=== PATIENT | male | born 1935 | race Caucasian/White ===

== ENCOUNTER 2019-06-15 09:15 | Emergency (ER) | payer MEDICARE, BC, SELFPAY ==
[2019-06-15 09:28] VITALS: BP 142/71; PULSE 61; RESP 16; TEMP 36.5; O2SAT 98
--- NOTE | 2019-06-15 09:41 | ED.EAR ---
HPI - Ear Problem General Chief complaint: Ear Stated complaint: Ears Stopped Up Time Seen by Provider: 06/15/19 09:38 Source: patient and RN notes reviewed Mode of arrival: ambulatory Limitations: no limitations History of Present Illness HPI Narrative: Patient presents today complaining of bilateral ear clogging since yesterday. Denies pain or drainage. He did use some peroxide in his ears with wax resulting. Denies any recent illness. He does report some decreased hearing bilaterally. MD Complaint: other (Ear clogging) Related Data Home Medications Medication Instructions Recorded Confirmed metoprolol succinate [Toprol XL] 50 mg PO BID 06/15/19 06/15/19 pantoprazole [Protonix] 40 mg PO DAILY 06/15/19 06/15/19 rosuvastatin 10 mg PO DAILY 06/15/19 06/15/19 Allergies Allergy/AdvReac Type Severity Reaction Status Date / Time iodine Allergy Unknown Agitated Verified 06/15/19 09:35 Review of Systems Review of Systems: Narrative: CONSTITUTIONAL: Denies body aches, fever, chills, or sweats. EYES: Denies visual changes, redness, or discharge. ENT: Denies rhinorrhea, congestion, sore throat, or otalgia.+ Bilateral ear clogging CARDIOVASCULAR: Denies chest pain, palpitations, or edema. RESPIRATORY: Denies cough or dyspnea. GASTROINTESTINAL: Denies abdominal pain, nausea, vomiting, or diarrhea. GENITOURINARY: Denies dysuria or hematuria. SKIN: Denies rash, itching, or wounds. MUSCULOSKELETAL: Denies back pain, joint pain, or myalgia. NEUROLOGIC: Denies headache, numbness, tingling, or weakness. PSYCH: Denies depression or anxiety. [facility] Social History Social History (Reviewed 03/22/19 @ 11:28 by Nataliia Amaya [facility]) Smoking status: Never smoker Alcohol intake: never Gender identity (if verbalized by the patient): Male Comments At time of signature, I have reviewed and agree with nursing past medical, surgical, social and family history unless otherwise noted. Please see nursing chart for further information. There is no relevant family history pertinent to the presenting complaint Exam Narrative: Exam Narrative: GENERAL: Well-appearing, well-nourished, and in no acute distress. HEAD: Normocephalic, atraumatic. EYES: EOMI. No redness or drainage. Conjunctivae normal. ENT: Mucous membranes pink and moist. Nares clear. No rhinorrhea. Bilateral ear canals are erythematous with excoriated skin in the canals and extra loose skin from debridement in the ear canals. NECK: Normal AROM. Supple. No lymphadenopathy. CHEST: No respiratory distress. EXTREMITIES: Normal range of motion. No edema. SKIN: Warm, dry, no rash. NEURO: No focal deficits. Alert and oriented x3. Gait steady. PSYCH: Normal affect. No signs of depression or anxiety. Course Vital Signs Vital signs: Vital Signs Temperature 97.7 F 06/15/19 09:28 Pulse Rate 61 06/15/19 09:28 Respiratory Rate 16 06/15/19 09:28 Blood Pressure 142/71 H 06/15/19 09:28 Pulse Oximetry 98 06/15/19 09:28 Temperature 97.7 F 06/15/19 09:28 Pulse Rate 61 06/15/19 09:28 Respiratory Rate 16 06/15/19 09:28 Blood Pressure 142/71 H 06/15/19 09:28 Pulse Oximetry 98 06/15/19 09:28 Reviewed. Pt has been instructed to follow up with his PCP regarding his elevated blood pressure today. Procedures Ear Wax Removal Both Ears: Ear Wax Removal Date: 06/15/19 Ear Wax Removal Time: 09:50 Cerumenolytic Used: other (Water and elephant ear) TM Examination: TM(s) intact, normal appearance Ear Canal Exam: atraumatic Patient Tolerated Procedure: well Complications: no problems Additional Comments: Canal is erythematous and excoriated without edema. Skin has been removed. Medical Decision Making Differential Diagnosis Differential Diagnosis: Otitis media, otitis externa, ruptured TM, serous otitis, eustachian tube dysfunction, cerumen impaction Vital Signs Vital Signs: Vital Signs Tempera
== END 2019-06-15 09:55 | disposition home or self-care (01) ==
PROVIDERS: Emergency Provider Nurse Practitioner; PCP Internal Medicine
DX: H60.503 Unspecified acute noninfective otitis externa, bilateral (principal); E78.00 Pure hypercholesterolemia, unspecified; I10 Essential (primary) hypertension
CPT/HCPCS: 99213; G0463

== ENCOUNTER → 2019-10-18 14:43 | Outpatient (REF) | payer MEDICARE, BC, SELFPAY | LOC: ANHLAB 14:43 | PROVIDERS: PCP Internal Medicine; Visit Provider Nurse Practitioner Family | DX: D09.8 Carcinoma in situ of other specified sites (principal) | CPT/HCPCS: 88305 ==

== ENCOUNTER → 2019-11-15 09:35 | Outpatient (REF) | payer MEDICARE, BC, SELFPAY | LOC: ANHLAB 09:35 | PROVIDERS: PCP Internal Medicine; Visit Provider Nurse Practitioner Family | DX: C44.329 Squamous cell carcinoma of skin of other parts of face (principal) | CPT/HCPCS: 88305; 88331 ==

== ENCOUNTER 2022-02-16 01:11 | Day surgery (SDC) | payer MEDICARE, BC, SELFPAY ==
[2022-02-13 13:25] VITALS: BMI 24.5
[2022-02-16 09:01] LABS: Basophils Absolute Auto 0.1 K/mm3 (0.0-0.1); Basophils Percent Auto 0.7 % (0.2-1.2); Eosinophils Absolute Auto 0.2 K/mm3 (0-0.3); Eosinophils Percent Auto 2.6 % (0-4.4); Hematocrit 38.5 % (42.0-52.0); Immature Granulocyte Absolute 0.03 K/mm3 (0.00-0.031); Immature Granulocyte Percent A 0.4 % (0-0.5); Lymphocytes Percent Auto 24.7 % (18.3-44.2); Mean Corpuscular HGB Conc 33.8 g/dl (32-36); Mean Corpuscular Hemoglobin 34.3 pg (26-34); Mean Corpuscular Volume 101.6 fl (80-100); Mean Platelet Volume 9.8 fl (7.4-10.4); Monocytes Absolute Auto 0.7 K/mm3 (0.1-0.6); Monocytes Percent Auto 9.6 % (2.6-8.5); Neutrophils Absolute Auto 4.5 K/mm3 (1.3-6.7); Platelet Count Result 184 k/mm3 (150-375); Red Blood Count 3.79 M/mm3 (4.6-6.20); Red Cell Distribution Width 14.5 % (11.5-14.5); White Blood Count 7.3 K/mm3 (4.5-10.0)
[2022-02-16 09:11] LABS: Anion Gap 6 mmol/L (8-16); Blood Urea Nitrogen 15 mg/dL (9-20); Calcium 9.3 mg/dL (8.4-10.2); Carbon Dioxide 28 mmol/L (22-30); Chloride 104 mmol/L (98-107); Estimated CRCL calculation 49 ml/min; Estimated Glomerular Filt Rate > 60; Glucose 104 mg/dL (65-110); Potassium 4.7 mmol/L (3.4-5.0); Sodium 138 mmol/L (137-145)
[2022-02-16 09:20] VITALS: BP 117/63; PULSE 54; RESP 14; TEMP 36.7; O2SAT 100; BMI 25.2
--- NOTE | 2022-02-16 09:31 | WPDMODSED ---
Moderate Sedation Note-Pt Data Patient Data Diagnosis: Complete heart block with chronically implanted dual-chamber pacemaker Present Complaint: No complaints Procedure to be performed/Plan: Pacemaker generator change Allergies Allergy/AdvReac Type Severity Reaction Status Date / Time No Known Allergies Allergy Verified 02/16/22 09:18 Home Medications Medication Instructions Recorded Confirmed Type metoprolol succinate 50 mg 50 mg PO BID 06/15/19 02/13/22 History tablet,extended release 24 hr (Toprol XL) aspirin 81 mg tablet,delayed 81 mg PO DAILY 09/27/19 02/13/22 History release latanoprost 0.005 % eye drops 1 drp EACH EYE BID 03/07/21 02/13/22 History timolol maleate 0.5 % eye drops 1 drp RIGHT EYE DAILY 03/07/21 02/13/22 History pantoprazole 40 mg tablet,delayed See Rx Instructions .Route 07/31/21 02/13/22 Rx release .COMPLEX #90 tabs allopurinol 300 mg tablet See Rx Instructions .Route 11/28/21 02/13/22 Rx .COMPLEX #90 tabs rosuvastatin 10 mg tablet 10 mg PO DAILY #90 tabs 12/19/21 02/13/22 Rx lisinopril 40 mg tablet 40 mg PO DAILY #90 tabs 02/13/22 02/13/22 Rx Sedation/Anesthesia: No previous sedation/anesthesia problems (including family history). [facility] Past Medical History Medical History (Updated 05/29/21 @ 09:29 by Pete Mendenhall*MD) Cardiac pacemaker in situ History of carotid artery disease History of prostate cancer Surgical History Surgical History (Updated 09/11/21 @ 12:55 by Kvng Murillo APRN) History of carotid endarterectomy Family History Family History Father Acute myocardial infarction Sibling Acute myocardial infarction Social History Social History (Updated 09/11/21 @ 12:56 by Kvng Murillo APRN) Smoking status: Never smoker Second hand tobacco smoke exposure: Yes Alcohol intake: former Alcohol use details: used to drink a couple beers every day- quit drinking 3 years ago Substance use: never Substance use type: does not use Living arrangements: alone Gender identity (if verbalized by the patient): Male Spiritual care concerns: No Mod Sed Physical Exam Physical Exam Pre Procedural Exam: Normal: Appearance, Neck, Throat, Airway, Lungs, Heart Size, Heart Rate, Heart Rhythm, Neuro Exam and Extremities Hours since solid foods: 12 Hours since liquid intake: 12 Mallampati Classification: class II Internal Medicine - PN: Obj Da Vital Signs Vital Signs: Vital Signs - 24 hr 02/16/22 09:20 Temperature 36.7 C Pulse Rate 54 L Respiratory Rate 14 Blood Pressure 117/63 Pulse Oximetry 100 Oxygen Delivery Room Air Labs CBC & Chem 7: 02/16/22 08:49 02/16/22 08:49 Labs: Laboratory Results - last 24 hr 02/16/22 02/16/22 02/16/22 08:49 08:49 08:49 WBC 7.3 RBC 3.79 L Hgb 13.0 L Hct 38.5 L MCV 101.6 H MCH 34.3 H MCHC 33.8 RDW 14.5 Plt Count 184 MPV 9.8 Immature Gran % (Auto) 0.4 Neut % (Auto) 62.0 Lymph % (Auto) 24.7 [place] % (Auto) 9.6 H Eos % (Auto) 2.6 Baso % (Auto) 0.7 Lymph # (Auto) 1.80 [place] # (Auto) 0.7 H Eos # (Auto) 0.2 Baso # (Auto) 0.1 Abs Immat Gran (auto) 0.03 Absolute Neuts (auto) 4.5 Absolute Nucleated RBC 0.0 Nucleated RBC % 0.0 PT 13.0 INR 1.0 Sodium 138 Potassium 4.7 Chloride 104 Carbon Dioxide 28 Anion Gap 6 L BUN 15 Creatinine 1.10 Estim Creat Clear Calc 49 Estimated GFR > 60 Glucose 104 Calcium 9.3 ASA Classification/Sedation ASA Classification/Sedation ASA Class: II Emergent: No Risks: Risks, benefits and alternatives explained and patient/family accepted plan for sedation. Patient re-evaluated immediately prior to sedation.
--- NOTE | 2022-02-16 10:55 | WPDCARDPROC ---
Cardiac Cath Procedure Note Date of procedure:: 02/16/22 Performing physician:: Adan Caro MD Indication:: permanent dual-chamber pacemaker at [facility] Brief clinical history:: this is an 86-year-old man with a history of intermittent complete heart block with a permanently implanted dual-chamber pacemaker which is functioning normally but is at end of service. He is admitted as an outpatient for elective generator change Procedure Procedure performed:: explant of depleted pulse generator implant new permanent dual-chamber pulse generator Sedation/Medication given:: fentanyl 25 mg Versed 2 mg case start time 10:20 a.m. case end time 10:28 a.m. sedation provided by Debi Dowd RN, trained observer Access site:: chronic left subclavian pocket Estimated blood loss:: minimal Procedure note:: patient was brought to the cardiac catheterization lab in the postabsorptive state where the left anterior chest wall was prepped and draped in the usual fashion. A the chronically implanted pocket was easily visible. Patient received 1% lidocaine infiltrated locally above the pocket and then using the PlasmaBlade an incision was made above the pocket and used to dissect the subcutaneous tissue down to the level of the fibrous capsule. This was then opened with the PlasmaBlade as well as the Metzenbaum scissors. The chronically implanted device in the attached leads were removed from the pocket and found to be visually intact and unremarkable in appearance. The leads were disconnected from the depleted generator using the torque wrench. The pocket was extended slightly inferiorly to create room for the new implant. The pocket was then irrigated with Ancef infused saline. The leads were then connected to the new generator using the torque wrench and the entire assembly was placed back into the pocket. This was then closed in layers using 3-0 Vicryl in interrupted fashion with the subcutaneous tissue and 4-0 Vicryl in a running subcuticular fashion for the skin. The wound was dressed with an Aquacel dressing he was taken to the holding area for post procedure recovery. There were no procedural complications. Findings:: The depleted pulse generator is a [employer] [id number] implanted initially March 10, 2013 new pulse generator is a [employer] ([employer]) MRI 2272 dual-chamber pulse generator programmed in the DDDR mode with lower rate limit 60 upper rate limit 110 av delay 250/225 milliseconds. The chronic atrial lead is a [employer] OptiSense bipolar lead serial number [id number]. the P-waves are sensed at 2.7 mV threshold 0.375 volts at 0.5 milliseconds impedance 350 Ohms. Chronic ventricular lead is a [employer]aurus Tendril STS 2088TC/58. serial number [id number]. R-waves are sensed at 9.9 mV threshold 0.1 volts at 0.5 milliseconds impedance 430 Ohms. Conclusion:: 1. Successful uncomplicated explantation of depleted dual-chamber pulse generator 2. successful uncomplicated implantation of new dual-chamber pulse generator for ongoing treatment of bradycardia and intermittent complete heart block in this 86-year-old man. Adan Caro MD [facility]
[2022-02-16 11:06] VITALS: BP 136/62; PULSE 59; RESP 18; O2SAT 100
[2022-02-16 11:15] VITALS: BP 135/66; PULSE 60; RESP 14; O2SAT 100
[2022-02-16 11:30] VITALS: BP 146/66; PULSE 60; RESP 13; O2SAT 100
[2022-02-16 12:00] VITALS: BP 155/69; PULSE 60; RESP 12; O2SAT 100
[2022-02-16 12:15] VITALS: BP 144/65; PULSE 60; RESP 16; O2SAT 100
== END 2022-02-16 12:38 | disposition home or self-care (01) ==
PROVIDERS: PCP Internal Medicine; Visit Provider Specialist
PROC: 0JPT0PZ Removal of Cardiac Rhythm Related Device from Trunk Subcutaneous Tissue and Fascia, Open Approach (ICD-10-PCS; CPT 33228; principal; 2022-02-16 10:00)
DX: Z45.010 Encounter for checking and testing of cardiac pacemaker pulse generator [battery] (principal); Z79.82 Long term (current) use of aspirin; Z85.46 Personal history of malignant neoplasm of prostate
CPT/HCPCS: 33228; 36415; 80048; 85025; 85610; C1785; J0690; J2250; J3010; J7040

== ENCOUNTER 2023-06-13 09:37 | Inpatient (IN) | payer MEDICARE, BC, SELFPAY ==
[2023-06-13] VITALS (13 sets, daily range): BP systolic 126–143; BP diastolic 56–72; PULSE 60–65; RESP 12–20; TEMP 36.2–36.6; O2SAT 94–100; BMI 25.8
--- NOTE | ~2023-06-13 | XR_ITS ---
XR chest 2V 06/13/2023 11:14 Indication: Weakness after fall Procedure: AP and lateral views the chest Comparison: Comparison to multiple prior studies sequentially, with oldest reviewed study dated 10/15. Findings: Heart size normal. Pacemaker leads are in expected position. There is evidence for chronic granulomatous disease. No focal air space disease, pulmonary edema, pleural effusion or suspected pne umothorax. Impression: 1: No acute cardiopulmonary disease. Reviewed, dictated and finalized at location A. SHED YARN EXAMINER Impression: 1: No acute cardiopulmonary disease.
--- NOTE | ~2023-06-13 | CT_ITS ---
EXAMINATION: CT brain wo con DATE: 06/13/2023 11:35 INDICATION: Weakness. Unsteady gait. TECHNIQUE: Computed tomography (CT) of the head was performed without intravenous contrast. The dose- length product was 681.00 mGy-cm. Automated exposure control and iterative reconstruction technique w ere employed. COMPARISON: None FINDINGS: Mild generalized atrophy. There are scattered mild periventricular and subcortical white ma tter changes, most likely related to small vessel ischemic disease (microangiopathy). No acute infarc tion, hemorrhage, mass or mass effect. No ventriculomegaly or midline shift. There is mucosal thicken ing of the paranasal sinuses. Mastoids are pneumatized. No depressed skull fractures. Midline sagitta l images are unremarkable. IMPRESSION: 1. No acute intracranial abnormality. Reviewed, dictated and finalized at location A. TRANSFER CLERK
--- NOTE | 2023-06-13 10:28 | ECG_ITS ---
Measurements Intervals [place] Rate: 61 P: 147 SC: 245 QRS: -87 QRSD: 192 T: 73 QT: 497 QTc: 502 Interpretive Statements ELECTRONIC ATRIAL PACEMAKER ELECTRONIC VENTRICULAR PACEMAKER NO FURTHER INTERPRETATION POSSIBLE NO PREVIOUS ECG AVAILABLE FOR COMPARISON Electronically Signed On 06-13-2023 18:25:54 CONTROL ROOM TENDER by Thanh Cedillo M.D.
[2023-06-13 10:41] LABS: Glucose Point of Care 176 mg/dl (65-105)
[2023-06-13 10:49] LABS: Basophils Percent Auto 0.6 % (0.2-1.2); Eosinophils Absolute Auto 0.1 K/mm3 (0-0.3); Hematocrit 36.4 % (42.0-52.0); Immature Granulocyte Absolute 0.02 K/mm3 (0.00-0.031); Immature Granulocyte Percent A 0.3 % (0-0.5); Lymphocytes Absolute Auto 1.15 K/mm3 (0.9-3.2); Lymphocytes Percent Auto 16.5 % (18.3-44.2); Mean Corpuscular Hemoglobin 32.8 pg (26-34); Mean Corpuscular Volume 99.5 fl (80-100); Mean Platelet Volume 9.5 fl (7.4-10.4); Monocytes Absolute Auto 0.7 K/mm3 (0.1-0.6); Monocytes Percent Auto 9.5 % (2.6-8.5); Neutrophils Percent Auto 72.1 % (45.5-73.1); Platelet Count Result 186 k/mm3 (150-375); Red Blood Count 3.66 M/mm3 (4.6-6.20); Red Cell Distribution Width 14.3 % (11.5-14.5)
[2023-06-13 11:04] LABS: Alanine Aminotransferase 22 U/L (6-50); Albumin Level 3.9 g/dL (3.5-5.1); Alkaline Phosphatase 66 U/L (38-126); Anion Gap 4 mmol/L (8-16); Aspartate Amino Transferase 30 U/L (17-59); Bilirubin,Total 0.5 mg/dL (0.2-1.3); Blood Urea Nitrogen 20 mg/dL (9-20); Calcium 9.7 mg/dL (8.4-10.2); Carbon Dioxide 29 mmol/L (22-30); Chloride 101 mmol/L (98-107); Estimated CRCL calculation 51 ml/min; Estimated Glomerular Filt Rate > 60; Glucose 130 mg/dL (65-110); Potassium 4.2 mmol/L (3.4-5.0); Sodium 134 mmol/L (137-145)
--- NOTE | 2023-06-13 11:10 | ED.FALL ---
HPI - Fall General Chief Complaint: Fall <Radha Tello PA-C - Last Filed: 06/13/23 18:00> Stated Complaint: fall <Radha Tello PA-C - Last Filed: 06/13/23 18:00> Time Seen by Provider: 06/13/23 10:30 <Radha Tello PA-C - Last Filed: 06/13/23 18:00> Source: patient and family <KAY Nathan Last Filed: 06/13/23 18:00> Mode of arrival: wheelchair <KAY Nathan Last Filed: 06/13/23 18:00> Limitations: other (poor historian) <KAY Nathan Last Filed: 06/13/23 18:00> History of Present Illness HPI Narrative: This is an 87-year-old male that presents to the emergency department for generalized weakness. Reports yesterday he was leaning forward to flower picker a blanket. Reports he lost his balance and fell on to his right shoulder. Reports he has felt off balance since. Has not been able to ambulate with a steady gait. He does live home alone. He is unsure if he hit his head. He did not lose consciousness. Denies any prodromal symptoms. No other concerns at this time. <Radha Tello PA-C - Last Filed: 06/13/23 18:00> Related Data Home Medications: Home Medications Medication Instructions Recorded Confirmed metoprolol succinate 50 mg 50 mg PO BID 06/15/19 03/31/23 tablet,extended release 24 hr (Toprol XL) aspirin 81 mg tablet,delayed 81 mg PO DAILY 09/27/19 03/31/23 release latanoprost 0.005 % eye drops 1 drp EACH EYE BID 03/07/21 03/31/23 timolol maleate 0.5 % eye drops 1 drp RIGHT EYE DAILY 03/07/21 03/31/23 <KAY Nathan Last Filed: 06/13/23 18:00> Allergies/Adverse Reactions: Allergies Allergy/AdvReac Type Severity Reaction Status Date / Time No Known Allergies Allergy Verified 03/31/23 13:27 <Radha Tello PA-C - Last Filed: 06/13/23 18:00> Review of Systems Review of Systems: CONSTITUTIONAL: Denies fever EYES: Denies visual changes CARDIOVASCULAR: Denies chest pain, palpitations, or edema. RESPIRATORY: Denies dyspnea. GASTROINTESTINAL: Denies abdominal pain, nausea, vomiting GENITOURINARY: Denies dysuria MUSCULOSKELETAL: Reports joint pain, and myalgia. NEUROLOGIC: Denies numbness, or weakness. <Radha Tello PA-C - Last Filed: 06/13/23 18:00> All systems reviewed & are unremarkable except as noted in HPI and below <Radha Tello PA-C - Last Filed: 06/13/23 18:00> [facility] Past Medical History Medical History: Medical History (Updated 06/13/23 @ 17:57 by Radha Tello PA-C) Actinic keratosis Benign hypertension with CKD (chronic kidney disease) stage III Cardiac pacemaker in situ CKD stage G3a/A1, GFR 45-59 and albumin creatinine ratio <30 mg/g Glaucoma Gout, unspecified History of carotid artery disease History of heart block History of prostate cancer Mixed hyperlipidemia 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 <Radha Tello PA-C - Last Filed: 06/13/23 18:00> Surgical History Surgical History: Surgical History History of carotid endarterectomy <Radha Tello PA-C - Last Filed: 06/13/23 18:00> Family History Family History: Family History Father Acute myocardial infarction Sibling Acute myocardial infarction <Radha Tello PA-C - Last Filed: 06/13/23 18:00> Social History Social History: Social History Smoking status: Never smoker Second hand tobacco smoke exposure: Yes Alcohol intake: former Alcohol use details: used to drink a couple beers every day- quit drinking 3 years ago Substance use: never Substance use type: does not use Lack of Transportation: No Lack of Food: Never True Current Housing: I Have Housing Concerned About Future Housing: No Difficulty Paying Gas/Elect
[2023-06-13 11:35] LABS: Influenza A QL RT-PCR Negative (Negative); Influenza B QL RT-PCR Negative (Negative); RSV RNA, RT-PCR Negative (Negative); SARS-CoV-2 RNA PCR Positive (Negative)
[2023-06-13 12:43] LABS: Appearance Urine Clear (Clear); Bilirubin Urine Negative (Negative); Blood Urine Negative (Negative); Color Urine Yellow (Yellow); Glucose Urine UA Negative (Negative); Ketones Urine Negative (Negative); Leukocyte Esterase Ur Negative LEU/UL (Negative); Nitrate Urine Negative (Negative); Protein Urine Negative (Negative); Specific Grav Ur 1.012 (1.001-1.035); Urobilinogen Urine 0.2 mg/dL (<2.0); pH Urine 7.5 (5.0-9.0)
[2023-06-13 12:49] LABS: Add Urine Microscopic? NO
[2023-06-13] MEDS: SODIUM CHLORIDE 0.9% IV 500 ML 999 ML IV CONT (13:32)
[2023-06-13] MEDS: MECLIZINE HCL 25 MG TABLET PO (13:33)
[2023-06-13] MEDS: ONDANSETRON INJ 4 MG/2 ML VIAL IV PUSH (13:33)
--- NOTE | 2023-06-13 17:40 | ADMGEN ---
This patient, Davon Mtz, was admitted to Virtual Bed 3rd Floor-1. Patient/family oriented to hospital policies and general routines including ID bracelet, bed and alarms, visiting hours, pain management, procedures, bathroom and other care routines, personal items, smoking policy, room service/diet, and visiting hours. Information on how to activate the Rapid Response Team has been discussed. Patient/Family are encouraged to report perceived risks to care and to ask questions if they do not understand what they are told or what they should do.
--- NOTE | 2023-06-13 18:46 | PM.IMHP ---
H&P: HPI History of Present Illness Date/Time: 06/13/23 20:15 Chief Complaint: Unsteady, fall yesterday. Narrative: This is a very pleasant 87-year-old male with hypertension, hyperlipidemia, permanent pacemaker implantation, bilateral carotid endarterectomy, prostate cancer, gout, anemia, and glaucoma presented to the emergency department for evaluation of unsteady gait and fall yesterday. The patient provides the following history. Yesterday he bent over to roller picker a blanket when he lost his balance and fell forward onto his right shoulder. He is able to move that shoulder without issue and has no pain but since that time he has felt increasingly weak and off balance. His gait has not been steady and he is afraid that he is going to fall again. He does not think he had any head trauma in the fall and denies prodrome will symptoms and loss of consciousness. Last week he had a cold but those symptoms have since resolved and he denies fever, chills, sweats, vertigo, visual changes, facial droop, difficulty speaking and swallowing, focal weakness, paresthesias, chest pain, pleuritic pain, cough, shortness of breath, nausea, vomiting, diarrhea, and dysuria. In the ED: He was afebrile on arrival with stable blood pressures. Labs were significant for WBC count of 7.0, hemoglobin 12.0, sodium 134, glucose 130. Urinalysis was unremarkable. He tested positive for SARS-CoV-[address] showed no acute abnormality and chest x-ray was also normal. Attempts at ambulation the emergency department were difficult due to unsteady gait and he is being admitted in this setting for further evaluation. Review of Systems Review of Systems: Twelve systems were reviewed and are negative except for as per HPI. [facility] Past Medical History Medical History Actinic keratosis Benign essential hypertension Carotid artery disease Status post bilateral carotid endarterectomy. 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 Code status: Do not resuscitate. Smoking status: Never smoker Second hand tobacco smoke exposure: Yes Alcohol intake: former Alcohol use details: used to drink a couple beers every day- quit drinking 3 years ago Substance use: never Substance use type: does not use Do You Feel Safe in your Home?: Yes Lack of Transportation: No Lack of Food: Never True Current Housing: I Have Housing Concerned About Future Housing: No Difficulty Paying Gas/Electric Bills: No Difficulty Paying for Meds: No Currently Unemployed: No Education: High School Diploma/GED Difficulty w/ Childcare or Family Care: No Living arrangements: alone Additional living arrangements comments: The patient lives in his own home in [place]. 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 Spiritual care concerns: No Meds Home Medications and Allergies Home Medications Medication Instructions Recorded Confirmed Type metoprolol succinate 50 mg 50 mg PO DAILY 06/15/19 06/13/23 History tablet,extended release 24 hr (Toprol XL) aspirin 81 mg tablet,delayed 81 mg PO VIPUL
[2023-06-14] VITALS (10 sets, daily range): BP systolic 95–119; BP diastolic 50–64; PULSE 57–75; RESP 18–20; TEMP 36–36.8; O2SAT 96–100
--- NOTE | 2023-06-14 | ECHO_ITS ---
Patient Info Name: Davon Mtz Age: 87 years : 1935 Gender: Male Ht: 72 in Wt: 177 lbs BSA: 2.02 m2 HR: 61 bpm BP: 119 / 55 mmHg Heart Rhythm: Sinus Rhythm Technical Quality: Fair Exam Date: 06/14/2023 3:33 PM Exam Location: Echo Lab Patient Status: Inpatient Admit Date: 06/14/2023 Staff Ordering Physician: Ami Cornelius APRN Spring Tacker: Carisa Whitmore RDCS Attending Provider: Brenton Molina MD Referring Physician: Ashli JIN; Exam Type: CA echo doppler color flow Study Info Indications - Weakness Complete two-dimensional, color flow and Doppler transthoracic echocardiogram is performed. Summary 1. Complete two-dimensional, color flow and Doppler transthoracic echocardiogram is performed. 2. Left ventricular hypertrophy with well-preserved systolic function and grade 1 diastolic noncompliance. 3. Enlarged left atrium. 4. Pacemaker lead identified. 5. Sclerotic aortic valve with minimal stenosis valve area 1.7 cm2. Left Ventricle Left ventricular chamber dimension is normal. Left ventricular systolic function is normal, estimated at 65-70%. There is moderate concentric increased left ventricular wall thickness. The left ventricular diastolic function is grade I diastolic dysfunction. Right Ventricle Right ventricular chamber dimension is normal. Linear artifact in right ventricle suggestive of catheter(s), pacemaker lead(s), or ICD lead(s). Left Atria Left atrial chamber dimension is moderately enlarged. Right Atria Right atrial chamber dimension is normal. Aortic Valve The aortic valve is trileaflet. There is moderate aortic valve sclerosis. There is mild aortic valve stenosis with a peak velocity of 183 cm/s, mean gradient of 8 mmHg, and aortic valve area of 1.9 cm2. Pulmonic Valve The pulmonic valve is not well visualized. Mitral Valve The mitral valve has normal leaflets. The mitral valve annulus is mildly calcified. Tricuspid Valve The tricuspid valve leaflets are normal. Pericardium/Pleural The pericardium appears normal. Aorta The aortic root size at the sinus of Valsalva is normal. Left Ventricular Outflow Tract Name Value Normal LVOT 2D LVOT Diameter 2.0 cm LVOT Doppler LVOT Peak Gradient 4 mmHg LVOT Mean Gradient 2 mmHg LVOT VTI 23 cm LVOT VTI/AV VTI Ratio 0.6 LVOT Stroke Volume 72 ml LVOT CO 4.2 l/min LVOT CI 2.1 l/min/m2 Mitral Valve Name Value Normal MV Doppler MV Decel [place] 250 cm/s2 MV PHT 84 ms MV Area (PHT) 2.6 cm2 4.0-5.0 MV Diastolic Function MV E Peak Velocity 72 cm/s MV
[2023-06-14 05:18] LABS: Hematocrit 36.9 % (42.0-52.0); Hemoglobin 12.3 g/dL (14.0-18.0); Mean Corpuscular HGB Conc 33.3 g/dl (32-36); Mean Corpuscular Hemoglobin 32.9 pg (26-34); Mean Corpuscular Volume 98.7 fl (80-100); Mean Platelet Volume 9.8 fl (7.4-10.4); Platelet Count Result 188 k/mm3 (150-375); Red Blood Count 3.74 M/mm3 (4.6-6.20); Red Cell Distribution Width 13.9 % (11.5-14.5); White Blood Count 7.7 K/mm3 (4.5-10.0)
[2023-06-14 05:35] LABS: Anion Gap 2 mmol/L (8-16); Blood Urea Nitrogen 15 mg/dL (9-20); Calcium 9.6 mg/dL (8.4-10.2); Carbon Dioxide 30 mmol/L (22-30); Chloride 104 mmol/L (98-107); Estimated CRCL calculation 57 ml/min; Estimated Glomerular Filt Rate > 60; Glucose 93 mg/dL (65-110); Magnesium 2.3 mg/dL (1.6-2.3); Potassium 4.2 mmol/L (3.4-5.0); Sodium 136 mmol/L (137-145)
--- NOTE | 2023-06-14 07:42 | P.PNIM_ITS ---
Progress Note: A&P Assessment and Plan (1) Fall from ground level: Code(s): W18.30XA - Fall on same level, unspecified, initial encounter Status: Acute Assessment and Plan: 06/14/2023: * patient here for evaluation after a ground level fall at home. He states that he has been a bit off balance for a while. 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 * Chest x-ray negative for any acute cardiopulmonary disease * head CT negative for any intracranial abnormality * PT and OT ordered for evaluation * orthostatic blood pressures Q shift * pacemaker interrogation ordered * patient started on meclizine 25 mg and 500 ml of normal saline while in the ED * will continue meclizine 25 mg daily (2) Gait instability: Code(s): R26.81 - Unsteadiness on feet Status: Acute Assessment and Plan: the above plan of care (3) COVID: Code(s): U07.1 - COVID-19 Status: Acute Assessment and Plan: 06/14/2023: * respiratory panel positive for COVID * patient currently on room air * no medications ordered at this time (4) Chronic anemia: Code(s): D64.9 - Anemia, unspecified Status: Acute Assessment and Plan: 06/14/2023: * hemoglobin 12.3, hematocrit 36.9 * will order iron studies, folate, vitamin B12 * continue to trend (5) Benign essential hypertension: Code(s): I10 - Essential (primary) hypertension Status: Chronic Assessment and Plan: 06/14/2023: * blood pressure ranging 113/64 to 135/72 * patient restarted on amlodipine, valsartan, metoprolol (6) Gastroesophageal reflux disease: Code(s): K21.9 - Gastro-esophageal reflux disease without esophagitis Status: Chronic Assessment and Plan: 06/14/2023: * continue Protonix (7) Gout, unspecified: Code(s): M10.9 - Gout, unspecified Status: Chronic Assessment and Plan: 06/14/2023: * continue allopurinol (8) Mixed hyperlipidemia: Code(s): E78.2 - Mixed hyperlipidemia Status: Chronic Assessment and Plan: 06/14/2023: * continue Crestor (9) Glaucoma: Code(s): H40.9 - Unspecified glaucoma Status: Chronic Assessment and Plan: 06/14/2023: * continue timolol eyedrops Time Spent With Patient Time with patient: Greater than 35 minutes Subjective Date/time seen: 06/14/23 07:42 Interval history: Is an 87-year-old male who presented to the hospital yesterday for evaluation after ground level fall. 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 Workup in the hospital included a chest x-ray which shown no acute cardiopulmonary disease. He also had a head CT which showed no acute intracranial abnormality. EKG showed an AV paced rhythm with a rate of 61. Initial labs revealed a white blood cell count of 7.0, hemoglobin 12.0, RBC 3.66, sodium 134, liver and kidney function is normal. A UA was checked and was negative for any bacteria. He also had a respiratory panel done which showed that he was COVID positive. He was started on meclizine, given a dose of Zofran, and 500 ml bolus of normal saline while in the ED. On examination today patient is alert and oriented x3, sitting in chair. Patient denies any fever, chills, nausea, vomiting, diarrhea, constipation, abdominal pain, chest pain, or shortness of breath. patient endorses dry cough and fogginess. Labs today reveal white b
--- NOTE | 2023-06-14 07:42 | PM.IMPN ---
Progress Note: A&P Assessment and Plan (1) Fall from ground level: Code(s): W18.30XA - Fall on same level, unspecified, initial encounter Status: Acute Assessment and Plan: 06/14/2023: patient here for evaluation after a ground level fall at home. He states that he has been a bit off balance for a while. 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 Chest x-ray negative for any acute cardiopulmonary disease head CT negative for any intracranial abnormality PT and OT ordered for evaluation orthostatic blood pressures Q shift pacemaker interrogation ordered patient started on meclizine 25 mg and 500 ml of normal saline while in the ED will continue meclizine 25 mg daily (2) Gait instability: Code(s): R26.81 - Unsteadiness on feet Status: Acute Assessment and Plan: the above plan of care (3) COVID: Code(s): U07.1 - COVID-19 Status: Acute Assessment and Plan: 06/14/2023: respiratory panel positive for COVID patient currently on room air no medications ordered at this time (4) Chronic anemia: Code(s): D64.9 - Anemia, unspecified Status: Acute Assessment and Plan: 06/14/2023: hemoglobin 12.3, hematocrit 36.9 will order iron studies, folate, vitamin B12 continue to trend (5) Benign essential hypertension: Code(s): I10 - Essential (primary) hypertension Status: Chronic Assessment and Plan: 06/14/2023: blood pressure ranging 113/64 to 135/72 patient restarted on amlodipine, valsartan, metoprolol (6) Gastroesophageal reflux disease: Code(s): K21.9 - Gastro-esophageal reflux disease without esophagitis Status: Chronic Assessment and Plan: 06/14/2023: continue Protonix (7) Gout, unspecified: Code(s): M10.9 - Gout, unspecified Status: Chronic Assessment and Plan: 06/14/2023: continue allopurinol (8) Mixed hyperlipidemia: Code(s): E78.2 - Mixed hyperlipidemia Status: Chronic Assessment and Plan: 06/14/2023: continue Crestor (9) Glaucoma: Code(s): H40.9 - Unspecified glaucoma Status: Chronic Assessment and Plan: 06/14/2023: continue timolol eyedrops Time Spent With Patient Time with patient: Greater than 35 minutes Subjective Date/time seen: 06/14/23 07:42 Interval history: Is an 87-year-old male who presented to the hospital yesterday for evaluation after ground level fall. 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 Workup in the hospital included a chest x-ray which shown no acute cardiopulmonary disease. He also had a head CT which showed no acute intracranial abnormality. EKG showed an AV paced rhythm with a rate of 61. Initial labs revealed a white blood cell count of 7.0, hemoglobin 12.0, RBC 3.66, sodium 134, liver and kidney function is normal. A UA was checked and was negative for any bacteria. He also had a respiratory panel done which showed that he was COVID positive. He was started on meclizine, given a dose of Zofran, and 500 ml bolus of normal saline while in the ED. On examination today patient is alert and oriented x3, sitting in chair. Patient denies any fever, chills, nausea, vomiting, diarrhea, constipation, abdominal pain, chest pain, or shortness of breath. patient endorses dry cough and fogginess. Labs today reveal white blood cell count of 7.7, hemoglobin 12.3, sodium 136, magnesium 2.3. Plan today is to have him work with physical therapy and occupational therapy. He will also have an echo today and pacemaker interrogated. Review of Systems Review of Systems: All systems reviewed & are unremarkable except as noted in HPI and below Constitutional: Constitutional: Reports as per HPI and Reports no additional constitutional comp
[2023-06-14] MEDS: allopurinoL 300 MG TABLET PO (08:28)
[2023-06-14] MEDS: MECLIZINE HCL 25 MG TABLET PO (08:28)
[2023-06-14] MEDS: ASPIRIN 81 MG ENTERIC TABLET PO (08:28)
[2023-06-14] MEDS: VALSARTAN 160 MG TABLET PO (08:28)
[2023-06-14] MEDS: PANTOPRAZOLE 40 MG TABLET PO (08:29)
[2023-06-14] MEDS: ROSUVASTATIN 10 MG TABLET PO (08:29)
[2023-06-14] MEDS: METOPROLOL SUCCINATE EXT REL 50 MG TABCR PO (08:29)
[2023-06-14] MEDS: amLODIPine BESYLATE 5 MG TABLET 10 MG PO (08:29)
[2023-06-14] MEDS: ENOXAPARIN 40 MG/0.4 ML SYRINGE SUB-Q (08:30)
[2023-06-14 11:21] LABS: Vitamin D 25 Hydroxy 41.1 ng/mL
[2023-06-14 14:07] LABS: Iron 80 ug/dL (49-181); Percent Iron Saturation 32 % (20-50)
[2023-06-14] MEDS: LATANOPROST 0.005% OP SOLN 2.5 ML BTL 1 DROP EACH EYE (21:52)
[2023-06-14] MEDS: TIMOLOL MALEATE 0.5% OP SOLN 5 ML BOTTLE 1 DROP RIGHT EYE (21:53)
[2023-06-15 04:29] VITALS: BP 113/48; PULSE 59; RESP 20; TEMP 37.1; O2SAT 98
[2023-06-15 10:11] VITALS: BP 90/48; PULSE 73; RESP 16; O2SAT 98
--- NOTE | 2023-06-15 10:19 | PM.DS ---
DS: Admitting Diagnosis Discharge Date 06/15/23 Admitting Diagnosis Fall from ground level Gait instability COVID-19 Chronic anemia Hypertension GERD GOUT Hyperlipidemia Glaucoma DS: Discharge Diagnosis Discharge Diagnosis (1) Fall from ground level: Code(s): W18.30XA - Fall on same level, unspecified, initial encounter Status: Acute (2) Gait instability: Code(s): R26.81 - Unsteadiness on feet Status: Acute (3) COVID: Code(s): U07.1 - COVID-19 Status: Acute (4) Chronic anemia: Code(s): D64.9 - Anemia, unspecified Status: Acute (5) Benign essential hypertension: Code(s): I10 - Essential (primary) hypertension Status: Chronic (6) Gastroesophageal reflux disease: Code(s): K21.9 - Gastro-esophageal reflux disease without esophagitis Status: Chronic Assessment and Plan: (7) Gout, unspecified: Code(s): M10.9 - Gout, unspecified Status: Chronic (8) Mixed hyperlipidemia: Code(s): E78.2 - Mixed hyperlipidemia Status: Chronic (9) Glaucoma: Code(s): H40.9 - Unspecified glaucoma Status: Chronic DS: Summary Hospital Course Reason for hospitalization: Fall from ground level Gait instability COVID-19 Chronic anemia Hypertension GERD GOUT Hyperlipidemia Glaucoma Hospital Course: 06/14/23: Is an 87-year-old male who presented to the hospital yesterday for evaluation after ground level fall.? 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 Workup in the hospital included a chest x-ray which shown no acute cardiopulmonary disease.? He also had a head CT which showed no acute intracranial abnormality.? EKG showed an AV paced rhythm with a rate of 61.? Initial labs revealed a white blood cell count of 7.0, hemoglobin 12.0, RBC 3.66, sodium 134, liver and kidney function is normal.? A UA was checked and was negative for any bacteria.? He also had a respiratory panel done which showed that he was COVID positive. He was started on meclizine, given a dose of Zofran, and? 500 ml bolus of normal saline while in the ED. On examination today patient is alert and oriented x3, sitting in chair. Patient denies any fever, chills, nausea, vomiting, diarrhea, constipation, abdominal pain, chest pain, or shortness of breath.? patient endorses dry cough and fogginess.? Labs today reveal white blood cell count of 7.7, hemoglobin 12.3, sodium 136, magnesium 2.3. Plan today is to have him work with physical therapy and occupational therapy. He will also have an echo today and pacemaker interrogated. 06/15/23: On examination today patient is alert and oriented x3, sitting in chair. He denies any new complaints today. Labs today were essentially unremarkable. Pacemaker was interrogated and was normal. Echo showing normal LV systolic function with an estimated EF of 65-70%, grade 1 diastolic dysfunction, moderate aortic valve sclerosis, normal RV function. Patient is stable for discharge at this time back to home. He will need to follow up with his PCP in 1 week. Final diagnosis: Ground level fall, COVID-19 Status at Discharge Cognitive/behavioral status at discharge: Alert and oriented x3 Functional status at discharge: independent ambulation Overall status at discharge: patient is progressing back to baseline Time Spent with Patient Time attestation: Total time spent providing and/or coordinating discharge services: Time spent: Greater than 30 minutes Exam Narrative: General: In no acute distress, well nourished Head: atraumatic, no encephalopathy Eyes: EOMI, PERRLA, sclera clear ENT: moist mucous membranes, nasal passages clear Neck: supple, no JVD, no adenopathy, trachea midline Cardiac: Normal S1 and S2. RRR. No murmur, gallops or friction rubs, peripheral pulses intact. Respiratory: Lungs clear to auscultation, no adventitious l
[2023-06-15] MEDS: PANTOPRAZOLE 40 MG TABLET PO (10:34)
[2023-06-15] MEDS: VALSARTAN 160 MG TABLET PO (10:34)
[2023-06-15] MEDS: ROSUVASTATIN 10 MG TABLET PO (10:35)
[2023-06-15] MEDS: ENOXAPARIN 40 MG/0.4 ML SYRINGE SUB-Q (10:35)
[2023-06-15] MEDS: MECLIZINE HCL 25 MG TABLET PO (10:35)
[2023-06-15] MEDS: allopurinoL 300 MG TABLET PO (10:35)
[2023-06-15] MEDS: ASPIRIN 81 MG ENTERIC TABLET PO (10:35)
[2023-06-15 14:00] VITALS: BP 100/52; PULSE 63; RESP 16; TEMP 36.5; O2SAT 100
[2023-06-15 15:18] VITALS: BP 123/52
[2023-06-15 15:19] VITALS: BP 125/48; BP 126/51
[2023-06-16 13:04] LABS: Red Blood Cell Folate 554 ng/mL RBC (>280)
== END 2023-06-15 16:00 | disposition home or self-care (01) | DRG 179 ==
LOC: ANHED 10:47 → ANH3MEDSUR 16:36 → ANH2MED 18:11
PROVIDERS: Emergency Medicine; Physician Assistant; Admitting Provider Family Medicine; Emergency Provider Physician Assistant; PCP Family Medicine; Visit Provider Nurse Practitioner Acute Care
DX: U07.1 COVID-19 (principal); I12.9 Hypertensive chronic kidney disease with stage 1 through stage 4 chronic kidney disease, or unspecified chronic kidney disease; N18.30 Chronic kidney disease, stage 3 unspecified; D64.9 Anemia, unspecified; E78.2 Mixed hyperlipidemia; H40.9 Unspecified glaucoma; K21.9 Gastro-esophageal reflux disease without esophagitis; M10.9 Gout, unspecified; M19.90 Unspecified osteoarthritis, unspecified site; R26.81 Unsteadiness on feet; W18.30XA Fall on same level, unspecified, initial encounter; Z85.46 Personal history of malignant neoplasm of prostate; Z95.0 Presence of cardiac pacemaker; Z85.828 Personal history of other malignant neoplasm of skin; Z79.82 Long term (current) use of aspirin
CPT/HCPCS: 36415; 70450; 71046; 80048; 80053; 81003; 82306; 82607; 82747; 82948; 83540; 83550; 83735; 85025; 85027; 87637; 93005; 93306; 96361; 96372; 96374; 97161; 97165; 99285; A9270; G0378; J1650; J2405; J7040

== ENCOUNTER 2023-07-14 08:53 | Outpatient (CLI) | payer MEDICARE, BC, SELFPAY ==
--- NOTE | ~2023-07-14 | US_ITS ---
EXAMINATION:US_VDOPREFRT_US INDICATION:Evaluate for venous reflux TECHNIQUE: Multiple grayscale, color flow and Doppler images of the right lower extremity deep venous systems were obtained and reviewed. COMPARISON: No prior studies for comparison. FINDINGS: There is normal flow and compressibility in the common femoral, femoral, popliteal, posteri or tibial and peroneal veins without evidence for deep venous thrombosis or venous reflux. Lesser sap henous vein not visualized. The following diameters of the veins were obtained: Greater saphenous proximal: 0.7 cm Greater saphenous mid colon 0.6 cm Greater saphenous distal: 0.5 cm Right small saphenous proximal colon 0.3 cm Right small saphenous distal 0.4 cm IMPRESSION: 1: No lower extremity deep venous thrombosis or venous reflux. Reviewed, dictated and finalized at location L.
== END 2023-07-14 08:54 | disposition home or self-care (01) ==
LOC: ANHIMG 09:00
PROVIDERS: PCP Family Medicine; Visit Provider Nurse Practitioner Family
DX: M79.89 Other specified soft tissue disorders (principal)
CPT/HCPCS: 93971

== ENCOUNTER 2023-09-08 13:00 | Outpatient (RCR) | payer MEDICARE, BC, SELFPAY ==
--- NOTE | 2023-08-11 16:12 | PTOPEVAL1 ---
Assessment and note entered by Meceh Mcleod, PT Evaluation Information Assessment Status Evaluation Diagnosis unsteadiness on feet, weakness, history of covid 19, history of fall Onset 06/14/2023 Subjective Information Pt reports he was brought to the hospital last of this year due to a fall; was feeling unsteady and weak, tested positive for COVID 19. Per daughter's report, patient was DC'd from the hospital at walker level for ambulation; noted occasional dragging of R foot and increased bending of R leg during walking; she noticed pt is able to move much better today. Pt denies any pain or discomfort, states he feel occasional light headedness when doing standing tasks and walking; lives alone, reports using a SC when outside and usually with someone, furniture walks around the house. Reported Pain Level Pain Score 0: Self Report Assessment PT Clinical Summary Pt presents to therapy with multiple comorbidities of dizziness, unsteadiness, giddiness, weakness, balance deficits, gait impairments with significant drop foot and lateral lean. Will benefit from skilled PT to improve strength, balance and stability in order to perform functional mobility and ambulation safely and independently and reduce risk for falls. Plan of Care Interventions Electrical Stimulation,Gait Training,Manual Therapy,Neuro Re-education,Patient/Caregiver Education,Therapeutic Activities,Therapeutic Exercise PT Services Indicated Yes Treatment Frequency and 2x/week for 12 visits Duration These treatments will address the objective and functional deficits as defined above. The patient will be advanced safely and appropriately in order for the patient to progress towards his/her prior level of function. Additional exercises will be introduced and as well as a comprehensive home exercise program upon discharge, if needed, ?to ensure carryover of functional gains achieved in the clinic. This treatment plan has been reviewed and agreement upon by the patient.
--- NOTE | 2023-08-25 14:52 | PCPTNOTE ---
Pt canceled due to weather.
--- NOTE | 2023-09-08 18:28 | PTOPEVAL1 ---
Assessment and note entered by Meche Mcleod, PT Progress Information Assessment Status Progress Diagnosis R26.81, M15.0 Onset 06/14/2023 Subjective Information Pt reports not feeling any better than when he started. However, he states he is able to move R foot up some now versus not able to move it at all at SOC. Denies any pain, mainly feeling weak and limited with mobility at this time. Reported Pain Level Pain Score 0: Self Report Assessment PT Clinical Summary Pt demos progress to standing and walking ability, however, pt. continue to demo with generalized weakness to BLE and postural deficits which result to being a mod-high risk for falls and decreased safe and indep ambulation. Continued skilled PT necessary to address impairments and improve QOL. Plan of Care Interventions Check Out for Orthotic/Pr,Electrical Stimulation, Gait Training,Manual Therapy,Neuro Re-education, Patient/Caregiver Education,Therapeutic Activities, Therapeutic Exercise PT Services Indicated Yes Treatment Frequency and 1-2x/wk x 10 visits Duration These treatments will address the objective and functional deficits as defined above. The patient will be advanced safely and appropriately in order for the patient to progress towards his/her prior level of function. Additional exercises will be introduced and as well as a comprehensive home exercise program upon discharge, if needed, ?to ensure carryover of functional gains achieved in the clinic. This treatment plan has been reviewed and agreement upon by the patient.
--- NOTE | 2023-12-09 12:03 | PCPTNOTE ---
Mr. Mtz attended a total of 9 treatments sessions. He continued to describe fluctuating pain levels at his last appointment. Pt. has not returned to the clinic since his last session on 09/09/23. He will be discharged from our care. Thank you for the referral of this patient. Adan Rodríguez, ROSALIO
== END 2023-11-01 11:29 | disposition home or self-care (01) ==
LOC: ANHPT 13:00
PROVIDERS: PCP Nurse Practitioner Family; Visit Provider Nurse Practitioner Family
DX: R26.81 Unsteadiness on feet (principal); R53.1 Weakness; R42 Dizziness and giddiness; M15.0 Primary generalized (osteo)arthritis; U07.1 COVID-19; W18.30XA Fall on same level, unspecified, initial encounter
CPT/HCPCS: 97110; 97112; 97116; 97161; 97162; 97530

== ENCOUNTER 2024-07-12 13:21 | Outpatient (CLI) | payer MEDICARE, BC, SELFPAY ==
--- NOTE | ~2024-07-12 | CT_ITS ---
EXAMINATION: CT lumbar spine wo con DATE: 07/12/2024 13:45 INDICATION: Dorsalgia, unspecified. TECHNIQUE: Computed tomography (CT) of the lumbar spine was performed without intravenous contrast. A utomated exposure control and iterative reconstruction technique were employed. The dose-length produ ct was 705.22 mGy-cm. COMPARISON: None FINDINGS: Calcifications in the spleen are consistent with old granulomatous disease. There are cysts in the kidneys measuring up to 2.3 cm on the right. There is 11 degrees dextroscoliosis of lumbar sp ine. There is mild chronic anterior wedging of T11 and T12 vertebral bodies. There is 3 mm anterolist hesis of L4 and L5. There is severely decreased disc height at L1-L2 and L2-L3, moderately decreased disc height at L3-L4 and L4-L5, and severely decreased disc height at L5-S1. The following disc level s are specifically discussed: L1-L2: The disc is bulging. There is severe bilateral facet joint osteoarthritis. There is moderate r ight and mild left neural foraminal stenosis. There is mild central canal stenosis. L2-L3: The disc is bulging. There is severe bilateral facet joint osteoarthritis. There is moderate b ilateral neural foraminal stenosis. There is mild central canal stenosis. L3-L4: The disc is bulging. There is severe bilateral facet joint osteoarthritis. There is moderate b ilateral neural foraminal stenosis. There is moderate central canal stenosis. L4-L5: The disc is bulging. There is severe bilateral facet joint osteoarthritis. There is moderate b ilateral neural foraminal stenosis. There is moderate central canal stenosis. L5-S1: The disc is bulging. There is severe bilateral facet joint osteoarthritis. There is moderate r ight and mild left neural foraminal stenosis. There is mild central canal stenosis. IMPRESSION: 1. Severe lumbar spondylosis. 2. Lumbar dextroscoliosis. Reviewed, dictated and finalized at location A.
--- OUTSIDE RECORDS SUMMARY | 2024-07-12 14:28 | XMS_ITS | Encounter Summary ---
Author Organization [facility] Address [address] [address] Care Team Providers Care Petrol Tanker Driver Name Role Phone Layton Rodriguez MD Primary Care Provider [phone] Layton Rodriguez MD Primary Care Provider [phone] Jey De La Rosa DO Primary Care Provider [phone] Wilberto Philippe MD Primary Care Provider [phone] Encounter Details Date Type Department Care Team (Late st Contact Info) Description 06/17/2016 Orders Only [facility] ProviderBriseyda MD [address] [place] [id number] Social History Tobacco Use Types Packs/Day Years Used Date Smoking Tobacco: Never Alcohol Use Standard Drinks/Week Comments Yes 0 (1 standard drink = 0.6 oz pur e alcohol) Sex and Gender Information Value Date Recorded Sex Assigned at Not on file 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 Historical Provider [facility] P[facility]AR [facility]AN Final Result documented in this encounter Visit Diagnoses Not on filedocumented in this encounter Care Teams Petrol Tanker Driver Relationship Specialty Start Date End Date Layton Rodriguez MD [address] [place] [address] PCP - General 07/17/16 08/22/18 Layton Rodriguez MD [address] [facility] [address] [place] [address] PCP - General 04/26/13 07/16/16 Jey De La Rosa DO [address] [facility] [address] [place] [address] PCP - General Internal Medicine 08/23/18 12/09/22 Wilberto Philippe MD [address] [facility] [address] [place] [address] PCP - General Family Practice 12/10/22 documented as of this encounter
--- OUTSIDE RECORDS SUMMARY | 2024-07-12 14:28 | XMS_ITS | Referral Summary ---
Author Organization [facility] [address] [place] [address] [address] [place] [address] Care Team Providers Care Senior Microstrategy Developer Name Role Phone Wilberto Philippe MD Primary Care Provider [phone] Encounters Date Type Department Care Team Description 04/26/2024 1:00 PM MOBILE HOME SET UP PERSON Ancillary Procedure [facility] [address] [facility] [address] [place] [address] Complete heart block (HCC); Cardiac pacemaker in situ 04/25/2024 Orders Only [facility] [address] [facility] [address] [address] Adan Caro MD Cardiac pacemaker in situ (Primary Dx); Complete heart block (HCC); PSVT (paroxysmal supraventricular tachycardia) from Last 3 Months Allergies Active Allergy Reactions Criticality Noted Date Comments Quinolones Medications aspirin 325 mg tablet take 1 Tablet by oral route every day 0 0 3 Active allopurinol (ZYLOPRIM) 300 mg tablet take 1 tablet by oral route every day 0 [address] (VOLTAREN) 75 mg EC tablet take 2 Tablet by oral route every day 0 0 4 Active Additional Information Patient taking differently:75 mg,Full tab in AM half tab in afternoon, Reported on 09/03/2022 latanoprost (XALATAN) 0.005 % ophthalmic solution instill 1 drop by ophthalmic route every day into affected eye(s) in the evening 0 0 4 Active folic acid-vit B6-vit B12 (FOLGARD) 0.8-10-115 mg-mg-mcg tablet [address] (PROTONIX) 40 mg EC tablet take 1 tablet by oral route every day 0 0 4 Active rosuvastatin (CRESTOR) 10 mg tablet 0 Active timolol (TIMOPTIC) 0.5 % ophthalmic solution 0 Active amLODIPine (NORVASC) 10 mg tablet 3 Active valsartan (DIOVAN) 160 mg tablet 3 Active metoprolol XL (TOPROL-XL) 50 mg extended release tablet Take 2 tablets (100 mg total) by mouth daily 180 tablet 3 4 Active Active Problems Problem Noted Date Diagnosed Date Complete heart block 08/19/2017 Cardiac pacemaker in situ 05/14/2017 Overview (02/17/2022): [employer] Assurity Dual Pacemaker. Dx; CHB, PSVT. DOI 02/16/2022-Vania. Chronic leads 03/10/2013. [place] remote monitoring Q3 mo, office pacer checks Q1 yr. 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 Gender Identity Not on file Sexual Orientation Not on file Last Filed Vital Signs Vital Sign Reading Time Taken Comments Blood Pressure 118/62 09/07/2023 11:06 AM CDT Pulse 63 09/07/2023 11:06 AM CDT Temperature - - Respiratory Rate - - Oxygen Saturation 93% 09/07/2023 11:06 AM CDT Inhaled Oxygen Concentration - - Weight 92.1 kg (203 lb 1.6 oz) 09/07/2023 11:06 AM CDT Height 185.4 cm (6' 1 ) 09/07/2023 11:06 AM CDT Body Mass Index 26.8 09/07/2023 11:06 AM CDT Plan of Treatment Not on file Medical Devices Implanted Type Area Blanker Operator Device Identifier Shelf Expiration Date Model / Serial / Lot Pacemaker-02/18 Implanted:02/18 (Quantity not on file) Pacemaker Chest [employer] ACCENT 2210 / [id number] / Procedures Procedure Name Priority Date/Time Associated Diagnosis Comments DEVICE CHECK - IN OFFICE Routine 04/26/2024 12:21 PM MOBILE HOME SET UP PERSON Complete heart block (HCC) Cardiac pacemaker in situ from Last 3 Months Results * DEVICE CHECK - IN OFFICE (04/26/2024 12:21 PM MOBILE HOME SET UP PERSON) Anatomical Region Laterality Modality Other Narrative 05/11/2024 2:43 PM MOBILE HOME SET UP PERSON [employer] Assurity Dual Pacemaker. Dx; CHB, PSVT. DOI 02/16/2022-Vania. Chronic leads 03/10/2013. [place] remote monitoring Supervising MD: Dr Navarro. Office DDD Pacemaker evaluation demonstrated appropriate device function. Left pectoral incision well healed without signs of infection noted. Battery function-2.99V, 7.2 years remaining battery life to DEEPA. Appropriate lead measurements noted. Presenting [id number]. Underlying rhythm-SB with long First Degree AVB @ 50 bpm. AP-80%, CONTACT CENTER SPECIALIST-91%. No Atrial high rate episodes noted. No Ventricular high rate episodes noted. Medications; ASA 325 mg, Toprol XL. No programming changes made to device settings. See scanned report. Office device f/u 08/22/2025. [employer] remote f/u 08/01/2024. Vanessa Szymanski RN Adan Caro MD [facility] PROC EDURES Final Result from Last 3 Months Insurance MEDICARE [employer] Care Teams Senior Microstrategy Developer Relationship Specialty Start Date End Date Wilberto Philippe MD PCP - General Family Practice 12/10/22
--- OUTSIDE RECORDS SUMMARY | 2024-07-12 14:28 | XMS_ITS | Clinical Summary ---
Author Organization [facility] [address] Address [address] [place] [address] Care Team Providers Care Automatic Spinning Lathe Setter Name Role Phone Wilberto Philippe MD Primary Care Provider [phone] Allergies Active Allergy Reactions Criticality Noted Date [...] CHB, PSVT. DOI 02/16/2022-Vania. Chronic leads 03/10/2013. [employer] remote monitoring Q3 mo, office pacer checks Q1 yr. Encounters Date Type Department Care Team Description 04/26/2024 1:00 PM TEACHER OF GIFTED STUDENTS Ancillary Procedure [facility] Cardiology [address] [place] [address] Complete heart block (HCC); Cardiac pacemaker in situ 04/25/2024 Orders Only [facility] Cardiology [address] [facility] [address], [place] [address] Adan Caro MD Cardiac pacemaker in situ (Primary Dx); Complete heart block (HCC); PSVT (paroxysmal supraventricular tachycardia) from Last 3 Months Medical History Medical History Date Comments Hypertension Hypertension Peripheral vascular disease Lizz pheral vascular disease Family History Medical History Relation Name Comments Heart attack Brother 3 1 Myocardial Infa rction; Heart attack Brother 4 2 Myocardial Infa rction; Heart attack Father 2 Myocardial Infa rction; Relation Name Status Comments Brother 1 1 Alive Brother 2 2 Alive Brother 3 1 Brother 4 2 Father 1 Alive Father 2 Social History Tobacco Use Types Packs/Day Years Used Date Smoking Tobacco: Never Smokeless Tobacco: Never Tobacco Cessation:Counseling Given: Not Answered Alcohol Use Standard Drinks/Week Comments Yes 0 (1 standard drink = 0.6 oz pur e alcohol) 5 days a week Sex and Gender Information Value Date Recorded Sex Assigned at Not on file Legal Sex Male 5:53 AM 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 OF GIFTED STUDENTS Gender Identity Not on file Sexual Orientation Not on file Obstetrics History Last Filed Vital Signs Vital Sign Reading [...] 09/07/2023 11:06 AM CDT Plan of Treatment Health Maintenance Due Date Last Done Comments Depression Screening 1936 Fall Risk Assessment 1936 DTaP/Tdap/Td Vaccine (1 - Tdap) 10/10/1947 Hepatitis B Screening 1954 Well Visit 65+ 2001 Zoster Vaccine (2 of 3) 03/12/2014 01/15/2014 Pneumococcal vaccine 65+ (2 of 2 - PPSV23) 01/29/2016 01/28/2015, 03/14/2004 Influenza Vaccine (#1) 2023 7, 01/19/2016, 01/28/2015, Additional history exists Medical Devices Implanted Type Area Journeyman Level Acoustic Analyst Device Identifier Shelf Expiration Date Model / Serial / Lot Pacemaker-02/18 Implanted:02/18 (Quantity not on file) Pacemaker Chest [facility] [employer] CHB ACCENT [id number] / [id number] / Procedures Procedure Name Priority Date/Time Associated Diagnosis Comments DEVICE CHECK - IN OFFICE Routine 04/26/2024 12:21 PM TEACHER OF GIFTED STUDENTS Complete heart block (HCC) Cardiac pacemaker in situ from Last 3 Months Results * DEVICE CHECK - IN OFFICE (04/26/2024 12:21 PM TEACHER OF GIFTED STUDENTS) Anatomical Region Laterality Modality Other Narrative 05/11/2024 2:43 PM TEACHER OF GIFTED STUDENTS Onlan Assurity Dual Pacemaker. Dx; CHB, PSVT. DOI 02/16/2022-Vania. Chronic leads 03/10/2013. [place] remote monitoring Supervising MD: Dr Navarro. Office DDD Pacemaker evaluation demonstrated appropriate device function. Left pectoral incision well healed without signs of infection noted. Battery function-2.99V, 7.2 years remaining battery life to DEEPA. Appropriate lead measurements noted. Presenting bzzekh-MC-IN. Underlying rhythm-SB with long First Degree AVB @ 50 bpm. AP-80%, HOSPITAL RECEPTIONIST-91%. No Atrial high rate episodes noted. No Ventricular high rate episodes noted. Medications; ASA 325 mg, Toprol XL. No programming changes made to device settings. See scanned report. Office device f/u 08/22/2025. Antwan remote f/u 08/01/2024. Vanessa Szymanski, NIA Adan Caro MD CV CARDIAC SERVICES PROC EDURES Final Result from Last 3 Months Insurance MEDICARE [facility]LY [facility] MEDICARE [employer] MEDICARE Care Teams Automatic Spinning Lathe Setter Relationship Specialty Start Date End Date Wilberto Philippe MD PCP - General Family Practice 12/10/22
--- OUTSIDE RECORDS SUMMARY | 2024-07-12 14:28 | XMS_ITS | Continuity of Care Document ---
Author Organization [facility] Address [address] [place] [address] [place] [address] Phone Care Team Providers Care Planner Chief Name Role Phone Mauricio Scanlon Unavailable Unavailable Procedures Procedure Date Office/outpatient Visit, Est Optic Nerve Head Eval IOP Red Less Than 15% W Plan Of Care Feb IOP Red Less That 15% W Plan Of Care Feb Corneal Pachymetry Fundus Photography W/ Report Visual Field Examination-Professional Ma Visual Field Examination-Technical Eye Exam, New Patient Advance Directives Directive Yes / No Effective Date File Name No Information Encounters Encounter Description Practice Location Reason(s) For Visit Diagnoses Date Provider Providers Copied on Encounter Office/outpat ient Visit, Est [facility], [address] [place] [address] [address], [place], [place], [id number], [place] tel:[phone] SEC [facility] No Information 0 Capo Martínez. Clover [facility] , [address], [place], [address], [place]. tel:[phone] Referring Provider: Clover Baum [facility] [address], [place], [place], [facility]. tel:[phone] [facility], [address] [place] [address] [address], [place], [place], [id number], [place] tel:[phone] [facility] No Information May-2 4-201 0 Julio Arauz. [address] [place] [address], [facility], . tel:[phone] Referring Provider: Davonte orellana, [address] [place] [address], [facility]. tel:[phone] [facility] Eye [facility], [address] [place], [place] [address], [place], [id number], tel:[phone] [facility] No Information August-2 0-201 0 Krishnasamy Davonte. [address] [place] [address], [facility], . tel:[phone] Referring Provider: Davonte orellana, [address] [place] [address], [facility]. tel:[phone] [facility] Eye [facility], [address] [place], [place] [address], [place], [id number], tel:[phone] [facility] No Information 6-201 0 Krishnasamy Davonte. [address] [place] [address], [facility], . tel:[phone] Family History Family Member Type Diagnosis Age At Onset No Information Payers Payer name Insurance type Covered democrat ID Authoriza tion(s) Medicare [facility] [id number] [facility] Commercial [id number] Social History Type Description Quantity Date Captured Comments Sex Male Smoking Status No Information Chief Complaint And Reason For Visit No Information Reason For Referral Reason For Referral No Information History Of Present Illness Encounter Date Complaint History Of Prese nt Illness No Information Functional Status Date Functional Assessmen t No Information Instructions Date Instruction Additional Infor mation No Information Assessments Type Assessment Date No Information Patient Care Teams Name Effective Dates (start - stop) Status Members No Information
--- OUTSIDE RECORDS SUMMARY | 2024-07-12 14:28 | XMS_ITS | Data Portability ---
Author Organization [facility] [employer], Main Office Address [address] [place] [address] Assessment Encounter Date Assessment Date Assessment LastModified by Organization Details LastModified Time 01/18/2024 01/18/2024 This note is dictated and transcribed by [email or web address]. [employer] Exchange Architect variances may occur. Despite proofreading, typographical errors may occur. Occasional wrong-word or 'scjfv-j-afmv' substitutions may have occurred due to the inherent limitations of voice recording. Read the chart carefully and recognize, using context, where substitutions have occurred. Not available 01/18/2024 12:25:21 04/25/2024 04/25/2024 This note is dictated and transcribed by [email or web address]. [employer] Architect variances may occur. Despite proofreading, typographical errors may occur. Occasional wrong-word or 'uujjk-u-empp' substitutions may have occurred due to the inherent limitations of voice recording. Read the chart carefully and recognize, using context, where substitutions have occurred. Not available 04/25/2024 11:53:47 Plan of Treatment Reminders Order Date Submit Date Provider Last Modified By Organization Details Last Modified Time Details Appointments Establish ed Patient 15 2024 10:30A Gladys Raymundo DPM Not available Not available Not available Lab None recorded. Referral None recorded. Procedures None recorded. Surgeries None recorded. Imaging None recorded. Medication Orders ketoconaz ole 2 % topical cream 2023 024 [id number], [address], [place], [place], [id number], 01/18/2024 12:26:47 Patient TargetsNo targets recorded. Patient InstructionsNo instructions recorded. Reason for Referral None Reported. Problems Name Problem SNOMED Code Status Onset Date Resolution Date Notes Provider Name and Address Organization Details Recorded Time Malignant tumor of prostate 098769747 Active 2023 Camila Hernández aubrey, [facility] 4 11:50:25 Disorder of eye 472650371 Active 2023 Camila Hernández aubrey, [facility] 4 11:50:31 Gout 42235712 Active 2023 Camila Hernández aubrey, [facility] 4 11:50:36 Heart disease 56846793 Active 2023 Camila Hernández aubrey, [facility] 4 11:50:44 Hypercholeste rolemia 77065886 Active 2023 Camila Hernández aubrey, [facility] 4 11:50:52 Hypertensive disorder 47637810 Active 2023 Camila burgos, [facility] 4 11:51:00 Onychomycosis of toenails 473797423 Active 2023 Ambrosio Raymundo DPM [address], [place], [address] , [facility] [employer] [facility] 4 12:25:17 Pain in toe 313355842 Active 2023 Ambrosio Raymundo DPM [address], [place], [address] , [facility] [employer] [facility] 4 13:22:00 Unable to cut own toenails 949577509 Active 2023 Ambrosio Raymundo DPM [address], [place], [address] , [facility] [employer] [facility] 4 13:22:10 Notes:USE OF BLOOD THINNERS Problem Notes None recorded. Procedures Surgical History Date Name Laterality Status Provider Name and Address Organization Details Recorded Time 5 Nail Debridement completed Ambrosio Raymundo DPM [address], [place], [address], [place] [facility] [employer] 04/25/2024 11:53:39 4 Nail Debridement completed Ambrosio Raymundo DPM [address] [facility], [facility] [address], [place], [address], [facility] [employer] 01/20/2024 13:21:35 Imaging Results None recorded. Procedure Notes None recorded. Medical Equipment None Reported. Allergies No known drug allergies Medications Name Sig Start Date Stop Date Status Note LastModified by Organization Details LastModified Time latanoprost 0.005 % eye drops active Not Available Not Available Not Available methocarbam ol 500 mg tablet TAKE 1 TABLET BY MOUTH EVERY DAY AT BEDTIME NEEDED FOR MUSCLE SPASM active Not Available Not Available No t Available metoprolol succinate ER 50 mg tablet,exte nded release 24 hr active Not Available Not Available Not Available amlodipine 5 mg tablet active Not Available Not Available Not Available meclizine 25 mg tablet TAKE 1 TABLET BY MOUTH TWICE DAILY 01/17 completed Not Available Not Available Not Available diazepam 2 mg tablet TAKE 1 TABLET BY MOUTH TWICE DAILY NEEDED FOR DIZZINESS 01/17 completed Not Available Not Available Not Available amlodipine 10 mg tablet active Not Available Not Available Not Available pantoprazol e 40 mg tablet,edison yed release active Not Available Not Available Not Available allopurinol 300 mg tablet active Not Available Not Available Not Available timolol maleate 0.5 % eye drops INSTILL 1 DROP IN RIGHT EYE DAILY active Not Available Not Available No t Available ketoconazol e 2 % topical cream APPLY TOPICALLY TO BOTH GREAT TOES ONCE DAILY active Not Available Not Available No t Available valsartan 160 mg tablet active Not Available Not Available Not Available rosuvastati n 10 mg tablet active Not Available Not Available Not Available Vitals Date Recorded Heart rate Respiratory rate Oxygen saturation Oxygen saturation in Arterial blood by Pulse oximetry Systolic blood pressure Diastolic blood pressure Provider Name and Address Organization Details Last Updated DateTime 4 70 /min 14 /min 98 % 98 % 112 mm[Hg] 52 mm[Hg] Shanda Arthur [facility] [employer] 4 12:13:10 Date Recorded Heart rate Respiratory rate Oxygen saturation Oxygen saturation in Arterial blood by Pulse oximetry Systolic blood pressure Diastolic blood pressure Provider Name and Address Organization Details Last Updated DateTime 5 72 /min 14 /min 98 % 98 % 185 mm[Hg] 90 mm[Hg] Shanda Arthur [place] [facility] [place] [employer] [facility] 11:37:03 Social History Question Answer Notes LastModified by Organizat ion Details LastModified Time Tobacco Smoking Status Never Smoker Camila Parkinsonernie burgos [place] - [facility] [employer] [facility] 01/18/2024 11:53:10 What Is Your Level Of Alcohol Consumption? None [email or web address] Information not available 01/18/2024 Sex: Unknown Functional Status None recorded. Mental Status None recorded. Family History Relationship Description Onset Age of this Age Resolved Age Notes LastModified by Organization Details LastModified Time Brother Hypertensive disorder [email or web address] Not available 2023 11:52:31 Brother Heart disease [email or web address] Not available 2023 11:52:48 Father Heart disease [email or web address] Not available 2023 11:52:48 Mother Blood coagulation disorder [email or web address] Not available 2023 11:52:57 Medical History Condition Response HEART DISEASE/HEART PROBLEMS Y CANCER: SPECIFY Y GOUT Y USE OF BLOOD THINNERS Y HYPERTENSION Y HIGH CHOLESTEROL / HYPERLIPIDEMIA Y Past Encounters Encounter ID Performer Location Encounter Start Date Encounter Closed Date Diagnosis/Indication Diagnosis SNOMED-CT Code Diagnosis ICD10 Code Diagnosis Note [id number] Ambrosio Raymundo DPM [facility] Podiatry [address], [place] [address] 01/18/2024 11:43:17 01/21/2024 10:40:25 Onychomycosis of toenails 628267973 B35.1 bilat great toesdebrid ed without incidentRx ketoconazo leFollow-u p in 3 months Pain in toe 971780128 M7 9.676 secondary to toenails Unable to cut own toenails 347148630 Z74.1 [id number] Ambrosio Raymundo DPM [facility] Podiatry [address], [address] [address] 04/25/2024 11:32:54 05/12/2024 14:20:54 Onychomycosis of toenails 743983534 B35.1 bilat great toes- Resolvedde brided without incidentRx ketoconazo le - discontinu eFollow-up in 3 months Unable to cut own toenails 278737206 Z74.1 Health Concerns Section Related Observation LastModified by Organization Detai ls LastModified Time None Recorded Concern Status LastModified by Organization Details LastModified Time None Recorded Advance Directives Directive None Recorded Payers Encounter Date Sequence Insurance Name Policy Number Policy Morales Covered Member ID Morales Member ID Guarantor Name 01/18/2024 1 [place] Davon Mtz [id number] Davon Lockettin 01/18/2024 2 [place] [id number] Davon Nguyễn Bibi [id number] Davon Mtz 04/25/2024 1 [place] Davon Lock[place]in [id number] Davon Lockettin 04/25/2024 2 [place] [id number] Davon Nguyễn Bibi [id number] Davon Mtz Notes Date Note Type Note Provider Name and Address Organization Details Recorded Time 01/18/2024 text/html . Patient is an 88-year-old male who returns for thickened elongated toenails. Patient is unable to cut his toenails states he pain to the nails. Patient denies any other complaints. Ambrosio Raymundo DPM [address], [place], [address], [place] [employer] 01/20/2024 13:23:41 04/25/2024 text/html . Patient is 88-year-old male who returns the office for follow-up on routine foot care. Patient states his nails have become long painful denies any open wounds. Patient denies any other complaints. Ambrosio Raymundo DPM [address], [place], [address], [employer] 04/25/2024 11:54:08
== END 2024-07-12 13:22 | disposition home or self-care (01) ==
PROVIDERS: PCP Family Medicine; Visit Provider Nurse Practitioner Family
DX: M47.816 Spondylosis without myelopathy or radiculopathy, lumbar region (principal); M41.86 Other forms of scoliosis, lumbar region
CPT/HCPCS: 72131